=== PATIENT | female | born 1990 | race Caucasian/White ===

== ENCOUNTER 2018-06-18 20:23 | Emergency (ER) | payer OTHER, MEDICAID ==
[2018-06-19] MEDS: ONDANSETRON 4 MG INJ IV (00:44)
[2018-06-19] MEDS: SOD CHLORIDE 0.9% 1,000 ML IV ×2 (00:45→02:47)
[2018-06-19 00:56] LABS: URINE BLOOD (Dip) POC Negative (NEGATIVE); URINE GLUCOSE (Dip) POC Negative (NEGATIVE); URINE KETONES (Dip) POC 4+ (NEGATIVE); URINE LEUKOCYTE EST (Dip) POC Negative (NEGATIVE); URINE NITRITE (Dip) POC Negative (NEGATIVE); URINE TOTAL PROTEIN POC Trace (NEGATIVE)
== END 2018-06-19 04:03 | disposition home or self-care (01) ==
LOC: FTE 20:23
DX: O21.0 Mild hyperemesis gravidarum (principal); R10.2 Pelvic and perineal pain; Z3A.16 16 weeks gestation of pregnancy
CPT/HCPCS: 81003; 81025; 96361; 96374; 99284-25

== ENCOUNTER 2018-12-01 19:38 | Outpatient (CLI) | payer OTHER ==
[2018-12-03] MEDS ORDERED: NALOXONE (0.4 MG/ML) INJ IV (04:00)
[2018-12-03] MEDS ORDERED: FENTAnyl 2MCG/ML-ROPIV 0.2% 100 ML BAG EPI (04:00)
== END 2018-12-01 22:13 | disposition home or self-care (01) ==
LOC: OBT 19:38 → L-D 12-03 02:12 → OBT 22:13
DX: O48.0 Post-term pregnancy (principal); Z3A.40 40 weeks gestation of pregnancy
CPT/HCPCS: 76815; 76818

== ENCOUNTER 2018-12-03 02:12 | Inpatient (IN) | payer OTHER ==
[2018-12-03] MEDS: LACTATED RINGER'S 1,000 ML IV ×2 (03:29→04:07)
[2018-12-03] MEDS: AMPICILLIN 2 GM/NS (PMX) 100 ML IV (03:29)
[2018-12-03] MEDS ORDERED: OXYTOCIN 30 UNITS/LR 500 ML IV ×2 (03:30→10:00)
[2018-12-03] MEDS ORDERED: MISOPROSTOL 200 MCG TAB PR ×2 (03:30→10:00)
[2018-12-03] MEDS ORDERED: BUTORPHANOL 2 MG INJ IV (03:30)
[2018-12-03] MEDS ORDERED: IBUPROFEN 600 MG TAB PO (03:30)
[2018-12-03] MEDS ORDERED: LIDOCAINE 1% (MPF) 30 ML INJ INJ (03:30)
[2018-12-03] MEDS ORDERED: METHYLERGONOVINE 0.2 MG INJ IM (03:30)
[2018-12-03] MEDS ORDERED: CARBOPROST 250 MCG INJ IM ×2 (03:30→10:00)
[2018-12-03] MEDS ORDERED: FENTAnyl 50 MCG/ML VIAL (04:06)
[2018-12-03] MEDS ORDERED: FENTAnyl 2MCG/ML-ROPIV 0.2% 100 ML (04:06)
[2018-12-03 04:27] LABS: ADD MAN DIFF? NO
[2018-12-03 04:29] LABS: BASOPHILS % 0.2 % (0.0-2.0); EOSINOPHILS % 0.3 % (0.0-7.0); HEMATOCRIT 39.7 % (37.0-47.0); HEMOGLOBIN 13.2 g/dl (12.0-16.0); LYMPHOCYTES # 1.8 10^3/ul (0.8-2.9); LYMPHOCYTES % 18.7 % (15.0-51.0); MEAN CORPUSCULAR HEMOGLOBIN 28.8 pg (29.0-33.0); MEAN CORPUSCULAR HGB CONC 33.2 g/dl (32.0-37.0); MEAN CORPUSCULAR VOLUME 86.5 fl (82.0-101.0); MONOCYTE # 0.8 10^3/ul (0.3-0.9); MONOCYTES % 8.1 % (0.0-11.0); NEUTROPHIL # 6.8 10^3/ul (1.6-7.5); NEUTROPHILS % 72.3 % (39.0-77.0); PLATELET COUNT 167 10^3/UL (140-415); RED BLOOD COUNT 4.59 10^6/ul (4.20-5.40); RED CELL DISTRIBUTION WIDTH 13.7 % (11.5-14.5)
[2018-12-03 04:29] LABS: WHITE BLOOD COUNT 9.4 10^3/ul (4.8-10.8)
[2018-12-03 04:51] LABS: INR 0.88; PT RATIO 0.9
[2018-12-03 04:52] LABS: PARTIAL THROMBOPLASTIN TIME 26.9 Sec (23.0-35.0)
[2018-12-03 05:14] LABS: HEPATITIS B SURFACE ANTIGEN NEGATIVE (NEGATIVE)
[2018-12-03] MEDS: AMPICILLIN 1 GM/NS (PMX) 50 ML IV (07:29)
[2018-12-03] MEDS ORDERED: NALOXONE (0.4 MG/ML) INJ IV (07:30)
[2018-12-03] MEDS: FENTAnyl 2MCG/ML-ROPIV 0.2% 100 ML BAG EPI (09:12)
[2018-12-03] MEDS: OXYTOCIN 30 UNITS/LR 500 ML IV ×2 (09:28→09:45)
[2018-12-03] MEDS: LACTATED RINGER'S 1,000 ML IV* ×2 (09:37→17:37)
[2018-12-03] MEDS ORDERED: HYDROCODONE/APAP (5/325) TAB PO ×2 (10:00)
[2018-12-03] MEDS ORDERED: BENZOCAINE 20% 56 ML SPRAY TOP (10:00)
[2018-12-03] MEDS ORDERED: DIPHENHYDRAMINE 50 MG INJ IV (10:00)
[2018-12-03] MEDS ORDERED: ONDANSETRON 4 MG TAB PO (10:00)
[2018-12-03] MEDS ORDERED: WITCH HAZEL/GLYCERIN PAD PR (10:00)
[2018-12-03] MEDS ORDERED: MAGNESIUM HYDROXIDE 30ML CUP PO (10:00)
[2018-12-03] MEDS ORDERED: LANOLIN HPA 1 PKT TOP (10:00)
[2018-12-03] MEDS ORDERED: DIPHENHYDRAMINE 25 MG CAP PO (10:00)
[2018-12-03] MEDS ORDERED: ONDANSETRON 4 MG INJ IV (10:00)
[2018-12-03] MEDS ORDERED: DIBUCAINE 1% 30 GM OINT TOP (10:00)
[2018-12-03] MEDS ORDERED: SENNA/DOCUSATE NA (8.6MG/50MG) TAB PO (10:00)
[2018-12-03] MEDS ORDERED: NA PHOSPHATE/BIPHOS 133 ML ENEMA PR (10:00)
[2018-12-03] MEDS: IBUPROFEN 600 MG TAB PO ×2 (12:02→17:47)
[2018-12-03 16:43] LABS: RAPID PLASMA REAGIN NONREACTIVE (NR)
[2018-12-04] MEDS: IBUPROFEN 600 MG TAB PO ×5 (00:01→23:17)
[2018-12-04] MEDS: SENNA/DOCUSATE NA (8.6MG/50MG) TAB PO ×3 (00:01→21:05)
[2018-12-04 08:14] LABS: ADD MAN DIFF? NO
[2018-12-04 08:23] LABS: WHITE BLOOD COUNT 7.5 10^3/ul (4.8-10.8)
[2018-12-04 08:23] LABS: BASOPHILS % 0.3 % (0.0-2.0); EOSINOPHILS # 0.1 10^3/ul (0.0-0.5); EOSINOPHILS % 1.9 % (0.0-7.0); HEMATOCRIT 34.9 % (37.0-47.0); HEMOGLOBIN 11.2 g/dl (12.0-16.0); LYMPHOCYTES # 2.1 10^3/ul (0.8-2.9); MEAN CORPUSCULAR HEMOGLOBIN 28.4 pg (29.0-33.0); MEAN CORPUSCULAR HGB CONC 32.1 g/dl (32.0-37.0); MEAN CORPUSCULAR VOLUME 88.6 fl (82.0-101.0); MEAN PLATELET VOLUME 11.5 fl (7.4-10.4); MONOCYTE # 0.9 10^3/ul (0.3-0.9); MONOCYTES % 12.4 % (0.0-11.0); NEUTROPHIL # 4.3 10^3/ul (1.6-7.5); PLATELET COUNT 143 10^3/UL (140-415); RED BLOOD COUNT 3.94 10^6/ul (4.20-5.40); RED CELL DISTRIBUTION WIDTH 13.9 % (11.5-14.5)
[2018-12-05] MEDS: IBUPROFEN 600 MG TAB PO (05:29)
[2018-12-05] MEDS ORDERED: MEASLES,MUMPS,RUBELLA VACCINE INJ SC* (09:00)
[2018-12-05] MEDS ORDERED: VARICELLA VACCINE LIVE/PF 1,350 UNIT/0.5 ML ML SC* (09:00)
[2018-12-05] MEDS ORDERED: DIPHTH/TET/ACEL PERTUSS (ADULT) 0.5 ML VIAL IM* (09:00)
[2018-12-05] MEDS: SENNA/DOCUSATE NA (8.6MG/50MG) TAB PO (09:00)
== END 2018-12-05 11:45 | disposition home or self-care (01) | DRG 807 ==
LOC: OBT 02:12 → L-D 02:55 → PP1 11:00
PROVIDERS: Specialist
PROC: 10E0XZZ Delivery of Products of Conception, External Approach (ICD-10-PCS; principal; 2018-12-03)
DX: O69.81X0 Labor and delivery complicated by cord around neck, without compression, not applicable or unspecified (principal); Z37.0 Single live birth; Z3A.40 40 weeks gestation of pregnancy
CPT/HCPCS: 62319; 85025; 85610; 85730; 86592; 86850; 86900; 86901; 87340